=== PATIENT | female | born 1980 | race Caucasian/White ===

== ENCOUNTER 2017-03-23 00:34 | Emergency (ER) | payer MEDICARE ==
--- OUTSIDE RECORDS SUMMARY | 2017-03-23 01:10 | XMS REPORT | Continuity of Care Document ---
:1980 Author Organization [facility] [place] [address] Care Team Providers Name Role Phone Provider, None Per Patient Primary Care Provider Unavailable Source Comments This disclosure is being made pursuant to the [employer] program and maynot contain all information available regarding this patient.[facility] Active Allergies and Adverse Reactions Allergen Noted Date Severity Reactions Comments Haldol 08/22/2014 High Shortness Of Breath Topiramate 08/09/2014 Other (See Comments) Ziprasidone 08/09/2014 Other (See Comments) Current Medications Be aware that medications may not be up to date as of this document. Alwaysverify current medications with the patient. Prescription Sig. Disp. Refills Start Date End Date Status FLUoxetine (PROZAC) 20 Take 1 capsule by 30 capsule 5 12/24/2016 Active MG capsule mouth daily. rOPINIRole (REQUIP) Take 1 tablet by 30 tablet 5 12/24/2016 Active 0.25 MG tablet mouth nightly. traMADol (ULTRAM) 50 Take 2 tablets 100 tablet 5 12/24/2016 Active MG tablet (100 mg total) by mouth 4 (four) times daily. clonazePAM (KLONOPIN) Take 1 tablet (1 90 tablet 5 12/24/2016 Active 1 MG tablet mg total) by mouth 3 (three) times daily as needed. Active Problems Problem Noted Date Anxiety 01/26/2017 Fibromyalgia 02/20/2015 Anxiety disorder 02/20/2015 Most Recent Encounters Date Type Specialty Providers Description 01/26/2017 Office Visit Rheumatology Francisco J Piña MD Fibromyalgia ( Primary Dx); Anxiety 12/24/2016 Refill Rheumatology Camelia Lucas RN 12/24/2016 Refill Rheumatology Camelia Lucas RN Fibromyalgia ( Primary Dx); Anxiety disorder, unspecified type 12/23/2016 Refill Rheumatology Natalya Cardenas RN 12/22/2016 Refill Rheumatology Francisco J Piña MD Fibromyalgia; Anxiety disorder, unspecified type Social History Tobacco Use Types Packs/Day Years Used Date Current Every Day Smoker 0.5 Smokeless Tobacco: Never Used Tobacco Cessation:Ready to Quit: No; Counseling Given: Yes Comments: Alcohol Use Drinks/Week oz/Week Comments No Last Filed Vital Signs Vital Sign Reading Time Taken Blood Pressure 124/77 01/26/2017 1:07 PM CDT Pulse 89 01/26/2017 1:07 PM CDT Temperature - - Respiratory Rate - - Height 1.6 m (5' 3") 05/21/2016 3:22 PM CDT Weight 65.59 kg (144 lb 9.6 oz) 01/26/2017 1:07 PM CDT Body Mass Index 25.62 01/26/2017 1:07 PM CDT Oxygen Saturation - - Plan of Care Date Type Specialty Providers Description 07/29/2017 Appointment Rheumatology Francisco J Piña MD [address] [place] [phone] (Fax) Health Maintenance Due Date Last Done Comments Pneumococcal Medium Risk 19-64 yo (1 of 1 - PPSV23) 1999 Tetanus/Pertussis (1 - Tdap) 1999 Pap Smear 2001 Influenza Immunization (#1) 2016 Results from Last 3 Months Not on file Insurance Payer Benefit Plan / Group Subscriber ID Type Phone Address MEDICARE MEDICARE A AND B [id number] [id number] [address] [place] [address] [phone] FABY EASLEY [id number]
[2017-03-23] MEDS ORDERED: DEXAMETHASONE SOD PHOSPHATE 10 MG/ML VIAL IM ONE (01:38)
[2017-03-23] MEDS ORDERED: METHYLPREDNISOLONE ACETATE 80 MG/ML VIAL IM ONE (01:38)
--- NOTE | 2017-03-23 01:38 | ERNOTE ---
Integumentary HPI - General Presenting Symptoms: rash Source: patient - Immun/Allergies/Home Medications Immunizations: IMMUNIZATION HX Immunizations Up to Date Yes Allergies/Adverse Reactions: Allergies Allergy/AdvReac Type Severity Reaction Status Date / Time haloperidol [From Haldol] Allergy Verified 03/23/17 00:45 haloperidol lactate Allergy Verified 03/23/17 00:45 [From Haldol] ziprasidone HCl [From Geodon] Allergy Verified 03/23/17 00:45 ziprasidone mesylate Allergy Verified 03/23/17 00:45 [From Geodon] Home Medications: HOME MEDICATIONS Clonazepam [Klonopin] 1 mg PO TID PRN 02/06/14 [Last Taken Unknown] FLUoxetine HCL [Prozac] 10 mg PO DAILY 02/06/14 [Last Taken Unknown] Methylprednisolone [Medrol Dosepak] 4 mg PO DAILY #21 tab.ds.pk 03/23/17 [Last Taken Unknown] traMADol HCL [Conzip] 100 mg PO QID PRN 03/23/17 [Last Taken Unknown] - History of Present Illness Narrative: Pt states she has been pulling weeds for the past 2 days and now has itching and rash on her hands, arms and legs Location: Reports: upper extremity, hands, lower extremity, feet Quality: Reports: itching Severity: moderate Exposure: Reports: other - other plants Review of Systems - Review of Systems Constitutional: Absent: recent illness, fever EYE: Absent: no symptoms reported ENT: Absent: nose congestion, throat swelling Respiratory: Absent: shortness of breath, wheezing Cardiology: Present: no symptoms reported Gastrointestinal/Abdominal: Present: no symptoms reported Genitourinary: Present: no symptoms reported Musculoskeletal: Present: no symptoms reported Skin: Present: See HPI Neurological: Present: no symptoms reported Endocrine: Present: no symptoms reported Hematologic/Lymphatic: Present: no symptoms reported Psych: Present: no symptoms reported - Patient's Past Medical History Patient History - Medical: Bipolar, Fibromyalgia, Seizures, UTI'S Patient History - Cardiac/Respiratory: No pertinent hx Patient History - Cancer: No Hx of Cancer Patient History - Surgical Procedures: Tubal Ligation Patient History - Other: None - Social History Living Situations: home Smoking Status: Current every day smoker Alcohol Use: none Drug Use: none - Immunizations Immunizations Up to Date: Yes Physical Exam - Physical Exam General Appearance: Present: wd/wn, alert, no apparent distress Ears, Nose, Throat: Present: normal ENT inspection, normal pharynx Neck: Present: normal inspection, nontender Respiratory: Present: no respiratory distress, normal breath sounds, lungs clear Cardiovascular/Chest: Present: regular rate, rhythm, no murmur, normal peripheral pulses Back Exam: Present: normal inspection, normal range of motion Extremity Exam: Present: non-tender, no edema Neurological Exam: Present: alert, oriented, normal mood/affect Skin Exam: Present: other - papules on the hands and forearms, a few on the legs ED Progress - Vital Signs Vital Signs: Vital Signs 03/23/17 00:41 Temperature 36.9 C Pulse Rate 91 Respiratory 18 Rate Blood Pressure 113/73 O2 Sat by Pulse 100 Oximetry - Progress/Reassessment Chief Complaint: Rash Departure Clinical Impression: Contact dermatitis and eczema due to plant - Departure Disposition: Home self-care Condition: Good Instructions: Contact Dermatitis, [id number] Additional Instructions: Start the prescription medication morning. See your regular doctor if not improving Prescriptions: Methylprednisolone [Medrol Dosepak] 4 mg PO DAILY #21 tab.ds.pk
[2017-03-23] MEDS ORDERED: METHYLPREDNISOLONE ACETATE 80 MG/ML VIAL ONE (01:51)
[2017-03-23] MEDS ORDERED: DEXAMETHASONE SOD PHOSPHATE 10 MG/ML VIAL ONE (01:51)
[2017-03-23 02:11] VITALS: BP 122/78
== END 2017-03-23 02:06 | disposition home or self-care (01) ==
LOC: ER 00:34
DX: L25.5 Unspecified contact dermatitis due to plants, except food (principal); F17.200 Nicotine dependence, unspecified, uncomplicated